=== PATIENT | male | born 1990 | race African-American/Black ===

== ENCOUNTER 2017-07-10 07:11 | Emergency (ER) | payer OTHER ==
[2017-07-10 08:01] LABS: ALT (SGPT) 62 U/L (8-55); AST (SGOT) 38 U/L (5-34); Albumin 4.4 g/dL (3.5-5.0); Alkaline Phosphatase 78 U/L (40-150); Anion Gap 12 mmol/L (10-20); BUN (Urea Nitrogen) 16 mg/dL (8.9-20.6); Bilirubin, Total 0.4 mg/dL (0.2-1.2); Calc. Creatinine Clearance 0 mL/min (70-130); Calcium 9.8 mg/dL (7.8-10.44); Carbon Dioxide 27 mmol/L (22-29); Chloride 103 mmol/L (98-107); Estimated GFR-MDRD 88; Globulin 3.1 g/dL (2.4-3.5); Glucose 102 mg/dL (70-105); Potassium 4.1 mmol/L (3.5-5.1); Protein, Total 7.5 g/dL (6.0-8.3); Sodium 138 mmol/L (136-145)
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
[2017-07-10 08:06] LABS: #Basophils 0.1 thou/uL (0.0-0.2); #Eosinphils 0.7 thou/uL (0.0-0.7); #Lymphocytes 2.5 thou/uL (1.20-3.40); #Monocytes 0.5 thou/uL (0.11-0.59); #Neutrophils 3.2 thou/uL (1.40-6.50); %Basophils 1.7 % (0.0-1.0); %Eosinophils 10.3 % (0.0-10.0); %Lymphocytes 35.3 % (21.0-51.0); %Neutrophils 45.8 % (42.0-75.0); Hemoglobin 14.1 g/dL (14.0-18.0); Mean Corpuscular HGB CONC 32.1 g/dL (32.0-36.0); Mean Corpuscular Hemoglobin 27.1 pg (27.0-31.0); Mean Corpuscular Volume 84.3 fl (80.0-94.0); Mean Platelet Volume 6.2 fL (7.4-10.4); Platelet Count 364 thou/uL (130-400); RBC Distribution Width 12.3 % (11.5-14.5); Red Blood Cell (RBC) Count 5.22 mill/uL (4.70-6.10); White Blood Cell (WBC) Count 7.1 thou/uL (4.8-10.8)
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
[2017-07-10] MEDS ORDERED: Lidocaine 1% (PF) 30 ML VIAL ONE (08:26)
[2017-07-10] MEDS ORDERED: Ketorolac Tromethamine 30 MG/ML VIAL ONE (08:42)
[2017-07-10] MEDS ORDERED: Adacel (T-DAP) 0.5 ML VIAL ONE (10:42)
[2017-07-10] MEDS ORDERED: Acetaminophen 500 MG TAB ONE (10:42)
[2017-07-10] MEDS ORDERED: Bacitracin Zinc 1 Packet ONE (11:05)
[2017-07-10] MEDS ORDERED: ISOVUE-370 76%-LOCM 1 ML ONE (13:42)
== END 2017-07-10 11:20 | disposition home or self-care (01) ==
LOC: ERS 07:11
DX: S01.81XA Laceration without foreign body of other part of head, initial encounter (principal); T07.XXXA Unspecified multiple injuries, initial encounter; V43.62XA Car passenger injured in collision with other type car in traffic accident, initial encounter
CPT/HCPCS: 12013; 70450; 71260; 72125; 74177; 80053; 85025; 90471; 90715; 93005; 96374; G0390; J1885; J2001